=== PATIENT | female | born 1945 | race African-American/Black ===

== ENCOUNTER → 2019-09-09 | Emergency (ER) | payer MEDICARE, OTHER ==
[~2019-09-09] VITALS: Ht 165.1 cm; Wt 79.4 kg
[~2019-09-09] MED LIST: AMLODIPINE BESYL5 MG ORAL; HYDROCHLOROTH12.5 M2 ORAL; HydrALAZINE 50mg tab ORAL ONE; KEPPRA500 M4 ORAL; cefTRIAXone 1 GM in NS 55 ML IVPB ONE
--- NOTE | 2019-09-09 09:00 | NUR ---
ED Nurse Note: Patient arrived to ED by ambulance w/ c/o nausea since last night. Patient has not vomited, but states she felt nauseated after eating hummus last night. Patient has been dry heaving. Patient hypertensive upon arrivel, states that is her baseline. Dr. Crum aware. Patient AxO x 4, no s/s of acute distress. Patient on the program architect, bed in lowest position.
[2019-09-09 09:01] VITALS: BP 210/100
[2019-09-09 09:41] LABS: APPEARANCE,URINE CLEAR; BILIRUBIN, URINE NEGATIVE (NEGATIVE); COLOR,URINE PALE YELLOW; GLUCOSE, URINE (UA) NEGATIVE (NEGATIVE); KETONES,URINE NEGATIVE (NEGATIVE); LEUKOCYTE ESTERASE ,URINE 2+ (NEGATIVE); NITRITE,URINE NEGATIVE (NEGATIVE); PH,URINE 6 (4.5-8.0); PROTEIN,URINE 2+ (NEGATIVE); UROBILINOGEN,URINE NORMAL MG/DL (0.0-1.0)
[2019-09-09 10:07] LABS: BASOPHILS % (AUTO) 0.8 % (0.0-2.0); HEMATOCRIT 37.1 % (37.0-47.0); HEMOGLOBIN 12.4 G/DL (12.0-16.0); LYMPHOCYTES % (AUTO) 20.7 % (20.0-45.0); MEAN CORPUSCULAR VOLUME 94 FL (80-99); MONOCYTES % (AUTO) 5.5 % (1.0-10.0); NEUTROPHILS % (AUTO) 69.1 % (45.0-75.0); PLATELET COUNT 233 K/UL (150-450); RED BLOOD COUNT 3.96 M/UL (4.20-5.40); RED CELL DISTRIBUTION WIDTH 12.2 % (11.6-14.8); WHITE BLOOD COUNT 8.4 K/UL (4.8-10.8)
[2019-09-09 10:14] LABS: ANION GAP 11 mmol/L (5-15); BLOOD UREA NITROGEN 20 mg/dL (7-18); CALCIUM 8.7 MG/DL (8.5-10.1); CARBON DIOXIDE 25 MMOL/L (21-32); CHLORIDE 109 MMOL/L (98-107); CREATININE 1.4 MG/DL (0.55-1.30); POTASSIUM 3.5 MMOL/L (3.5-5.1); SODIUM 145 MMOL/L (136-145)
[2019-09-09 10:18] LABS: ALANINE AMINOTRANSFERASE 34 U/L (12-78); ALBUMIN 3.5 G/DL (3.4-5.0); ALBUMIN/GLOBULIN RATIO 0.7 (1.0-2.7); ALKALINE PHOSPHATASE 85 U/L (46-116); ASPARTATE AMINO TRANSFERASE 26 U/L (15-37); BILIRUBIN,TOTAL 0.5 MG/DL (0.2-1.0)
[2019-09-09 10:36] LABS: CKMB 2.5 NG/ML (0.0-3.6)
--- NOTE | 2019-09-09 10:49 | NUR ---
ED Nurse Note: Patient tolerated medications well, blood pressure 170/74. No complaints of headache, nausea, or vomiting.
[2019-09-09 11:00] VITALS: BP 178/89
--- NOTE | 2019-09-09 12:10 | NUR ---
ED Nurse Note: Patient states she is feeling better than before. No complaint of headaches or vision changes. Daughter at bedside.
[2019-09-09 13:02] VITALS: BP 186/78
--- NOTE | 2019-09-09 13:08 | Emergency Room Report ---
History of Present Illness General Chief Complaint: Hypertension Source: Patient Present Illness HPI 74-year-old female presents to emergency room with dizziness and elevated blood pressure. She reports having multiple episodes of dry heaving after eating she believes bad medicine. Patient is supposed to be managed on antihypertensives and other medications for CHF however she is trying a herbal route and taking only supplements and teas. Patient denies any chest pain, difficulty breathing, nausea, vomiting, diaphoresis. Allergies: Coded Allergies: ENALAPRIL (Unverified Allergy, Unknown, 09/09/19) Nursing Documentation-PMH Hx Cardiac Problems: Yes Hx Hypertension: Yes Hx Seizures: Yes Review of Systems Constitutional: Denies: chills, fever Respiratory: Denies: cough, shortness of breath Cardiovascular: Denies: chest pain, palpitations Gastrointestinal: Denies: diarrhea, vomiting Genitourinary: Denies: hematuria, pain Musculoskeletal: Denies: joint swelling Skin: Denies: rash, lesions Neurological: Reports: dizziness; Denies: headache Physical Exam Vital Signs Date Time Temp Pulse Resp B/P (MAP) Pulse Ox O2 Delivery O2 Flow Rate FiO2 09/09/19 08:49 97.9 90 19 220/100 (140) 100 Room Air Sp02 EP Interpretation: reviewed General Appearance: well appearing, no apparent distress, non-toxic Head: normocephalic, atraumatic Eyes: bilateral eye normal inspection ENT: hearing grossly normal, EOM grossly intact, moist mucus membranes Neck: supple Respiratory: lungs clear, normal breath sounds, no respiratory distress, speaking full sentences Cardiovascular #1: regular rate, rhythm, normal capillary refill Cardiovascular #2: 2+ radial (R), 2+ radial (L) Gastrointestinal: soft, no mass, non-distended Rectal: deferred Musculoskeletal: moves extm spontaneously, no lower extremity edema Neurologic: alert, motor strength/tone normal, foreman or supervisor and operator III-XII nml as tested, oriented x3, sensory intact, grossly normal Psychiatric: mood/affect normal Skin: warm/dry, normal turgor Medical Decision Making Diagnostic Impression: Primary Impression: HTN (hypertension) Additional Impression: CHF (congestive heart failure) ER Course 74-year-old female presents to emergency room with dizziness and elevated blood pressure. She reports having multiple episodes of dry heaving after eating she believes bad medicine. Patient is supposed to be managed on antihypertensives and other medications for CHF however she is trying a herbal route and taking only supplements and teas. Patient denies any chest pain, difficulty breathing, nausea, vomiting, diaphoresis. Exam was negative for any neurological deficits, rhonchi, wheezing, rales, lower extremity edema. Patient will need to be admitted for uncontrolled hypertension and congestive heart failure. Will contact insurance for transfer versus admission. 1300- Patient stating she is having urinary symptoms on reassessment, she is concerned for urinary tract infection. Urine noted to have positive leukocyte esterase. Patient had blood cultures drawn and started on antibiotics. Laboratory Tests Test 09/09/19 09:04 09/09/19 09:15 09/09/19 09:30 Arterial Blood pH 7.412 (7.350-7.450) Arterial Blood Partial Pressure CO2 39.1 mmHg (35.0-45.0) Arterial Blood Partial Pressure O2 84.2 mmHg (75.0-100.0) Arterial Blood HCO3 24.3 mmol/L (22.0-26.0) Arterial Blood Oxygen Saturation 95.8 % (95-100) Arterial Blood Base Excess -0.1 (-2-2) [place] Test Positive Urine Color Pale yellow Urine Appearance Clear Urine pH 6 (4.5-8.0) Urine Specific [place] 1.015 (1.005-1.035) Urine Protein 2+ (NEGATIVE) H Urine Glucose (UA) Negative (NEGATIVE) Urine Ketones Negative (NEGATIVE) Urine Blood Negative (NEGATIVE) Urine Nitrite Negative (NEGATIVE) Urine Bilirubin Negative (NEGATIVE) Urine Urobilinogen Normal MG/DL (0.0-1.0) Urine Leukocyte Esterase 2+ (NEGATIVE) H Urine RBC 0 /HPF (0 - 2) Urine WBC 5-10 /HPF (0 - 2) H Urine Squamous Epithelial Cells Few /LPF (NONE/OCC) Urine Bacteria Few /HPF (NONE) Urine Opiates Screen Negative (NEGATIVE) Urine Barbiturates Screen Negative (NEGATIVE) Phencyclidine (PCP) Screen Negative (NEGATIVE) Urine Amphetamines Screen Negative (NEGATIVE) Urine Benzodiazepines Screen Negative (NEGATIVE) Urine Cocaine Screen Negative (NEGATIVE) Urine Marijuana (THC) Screen Positive (NEGATIVE) H White Blood Count 8.4 K/UL (4.8-10.8) Red Blood Count 3.96 M/UL (4.20-5.40) L Hemoglobin 12.4 G/DL (12.0-16.0) Hematocrit 37.1 % (37.0-47.0) Mean Corpuscular Volume 94 FL (80-99) Mean Corpuscular Hemoglobin 31.4 PG (27.0-31.0) H Mean Corpuscular Hemoglobin Concent 33.6 G/DL (32.0-36.0) Red Cell Distribution Width 12.2 % (11.6-14.8) Platelet Count 233 K/UL (150-450) Mean Platelet Volume 8.5 FL (6.5-10.1) Neutrophils (%) (Auto) 69.1 % (45.0-75.0) Lymphocytes (%) (Auto) 20.7 % (20.0-45.0) Monocytes (%) (Auto) 5.5 % (1.0-10.0) Eosinophils (%) (Auto) 4.0 % (0.0-3.0) H Basophils (%) (Auto) 0.8 % (0.0-2.0) Sodium Level 145 MMOL/L (136-145) Potassium Level 3.5 MMOL/L (3.5-5.1) Chloride Level 109 MMOL/L (98-107) H Carbon Dioxide Level 25 MMOL/L (21-32) Anion Gap 11 mmol/L (5-15) Blood Urea Nitrogen 20 mg/dL (7-18) H Creatinine 1.4 MG/DL (0.55-1.30) H Estimate Glomerular Filtration Rate mL/min (>60) Glucose Level 117 MG/DL (74-106) H Osmolality 304 mOsm/kg (297-317) Calcium Level 8.7 MG/DL (8.5-10.1) Magnesium Level 2.0 MG/DL (1.8-2.4) Total Bilirubin 0.5 MG/DL (0.2-1.0) Aspartate Amino Transferase (AST) 26 U/L (15-37) Alanine Aminotransferase (ALT) 34 U/L (12-78) Alkaline Phosphatase 85 U/L (46-116) Creatine Kinase MB 2.5 NG/ML (0.0-3.6) Troponin I 0.000 ng/mL (0.000-0.056) Pro-B-Type Natriuretic Peptide 3367 pg/mL (0-125) H Total Protein 8.5 G/DL (6.4-8.2) H Albumin 3.5 G/DL (3.4-5.0) Globulin 5.0 g/dL Albumin/Globulin Ratio 0.7 (1.0-2.7) L Acetone Level Negative (NEGATIVE) Lab Results Impression CBC within normal limits, blood gas ABG noted to be within normal limits, chemistry noted to have elevated BUN and creatinine, elevated proBNP, negative troponin, negative CK-MB, urine tox screen positive for marijuana, urine analysis noted to have positive leukocyte esterase and WBCs EKG Diagnostic Results EKG Time: 09:46 EP Interpretation: Normal sinus rhythm rate of 73 Rate: normal Rhythm: NSR ST Segments: no acute changes Rhythm Strip Diag. Results Rhythm Strip Time: 13:06 EP Interpretation: yes Rate: 81 Rhythm: NSR Reevaluation Time: 13:01 Status: improved Reevaluation Impression Patient's care discussed with Dr. Sanchez who accepted patient for poorly controlled htn and chf [facility] Condition: Serious Referrals: [facility],REFERRING (PCP) Brannon Crum M.D. Sep 09, 2019 13:08
[2019-09-09 13:51] VITALS: BP 164/78
--- NOTE | 2019-09-10 07:59 | Diagnostic Imaging Report ---
Indication: Cough Technique: One view of the chest Comparison: none Findings: The heart is enlarged. Lungs and pleural spaces are clear. The aorta is tortuous and calcified. Impression: No acute process Cardiomegaly
== END | disposition short-term general hospital (02) ==
LOC: EDUNIT# 08:48 → EDBD 08:59 → EDSEX 08:59 → EMR 09:33 → CANBEDREQ 18:30
DX: I11.0 Hypertensive heart disease with heart failure (principal); I50.9 Heart failure, unspecified; G40.909 Epilepsy, unspecified, not intractable, without status epilepticus; Z88.8 Allergy status to other drugs, medicaments and biological substances
CPT/HCPCS: 36415; 36600; 71045; 80053; 80307; 81003; 82009; 82553; 82803; 82962; 83735; 83880; 83930; 84484; 85025; 87040; 93005; 96361; 96365; 96375; 99285; J0360; J0696; J1940; J2405; J7030